=== PATIENT | male | born 1985 ===

== ENCOUNTER 2020-03-30 15:12 | Outpatient (REF) | payer OTHER, SELFPAY | END 2020-03-30 15:13 | disposition home or self-care (01) | LOC: HO.LAB 15:12 | PROVIDERS: Visit Provider Internal Medicine | DX: Z20.828 Contact with and (suspected) exposure to other viral communicable diseases (principal) | CPT/HCPCS: 87635 ==

== ENCOUNTER → 2022-08-13 15:15 | Outpatient (BNVA) | payer OTHER, SELFPAY | PROVIDERS: Visit Provider Internal Medicine | DX: S02.5XXA Fracture of tooth (traumatic), initial encounter for closed fracture (principal); W22.8XXA Striking against or struck by other objects, initial encounter | CPT/HCPCS: 99203 ==

== ENCOUNTER → 2022-10-10 15:13 | Outpatient (REF) | payer OTHER, SELFPAY ==
--- NOTE | 2022-10-10 15:21 | ECG_ITS ---
Test Reason : CHEST PAIN Blood Pressure : / mmHG Vent. Rate : 064 BPM Atrial Rate : 064 BPM P-R Int : 156 ms QRS Dur : 090 ms QT Int : 416 ms P-R-T Axes : 033 036 037 degrees QTc Int : 429 ms Normal sinus rhythm with sinus arrhythmia Normal ECG No previous ECGs available Referred By: Leticia Sykes Electronically Signed By:MIKE SALDIVAR MD
== END ==
LOC: HO.CARD 15:13
PROVIDERS: PCP Internal Medicine; Visit Provider Internal Medicine
DX: R07.9 Chest pain, unspecified (principal)
CPT/HCPCS: 93005

== ENCOUNTER 2022-10-15 10:40 | Outpatient (REF) | payer OTHER, SELFPAY ==
[2022-10-15 10:50] LABS: MANUAL DIFF FLAG NO
[2022-10-15 11:09] LABS: Basophils Absolute Auto 0.1 X10*3/uL (0.0-0.2); Basophils Percent Auto 1.1 % (0-2); Eosinophils Absolute Auto 0.2 X10*3/uL (0.0-0.4); Eosinophils Percent Auto 3.7 % (0-4); Hematocrit 41.6 % (42.0-52.0); Hemoglobin 13.7 g/dl (14.0-18.0); Imm Gran Abs Auto 0.01 X10*3/uL (0.00-0.03); Imm Gran Pct Auto 0.2 % (0.0-0.4); Lymphocytes Absolute Auto 2.2 X10*3/uL (1.2-4.9); Lymphocytes Percent Auto 40.6 % (20-40); Mean Corpuscular HGB Conc 32.9 g/dl (31.0-36.0); Mean Corpuscular Hemoglobin 28.1 pg (27.0-33.0); Mean Corpuscular Volume 85.2 fL (80.0-98.0); Mean Platelet Volume 9.8 fL (9.4-12.4); Monocytes Absolute Auto 0.6 X10*3/uL (0.1-1.2); Neutrophils Absolute Auto 2.3 x10*3/uL (2.0-8.3); Neutrophils Percent Auto 43.4 % (45-73); Platelet Count 266 X10*3/uL (160-400); Red Blood Count 4.88 X10*6/uL (4.60-5.80); Red Cell Distribution Width 13.3 % (11.0-16.0); White Blood Count 5.3 X10*3/uL (4.8-10.8)
[2022-10-15 13:05] LABS: Thyroid Stimulating Hormone 0.48 uIU/mL (0.32-4.0)
[2022-10-15 13:09] LABS: Anion Gap 12 (12-20)
[2022-10-15 13:14] LABS: Alanine Aminotransferase 26 U/L (0-40); Albumin Level 4.5 g/dL (3.5-5.0); Alkaline Phosphatase 61 U/L (39-117); Aspartate Amino Transferase 24 U/L (5-37); Bilirubin Total 0.9 mg/dL (0.0-1.0); Blood Urea Nitrogen 14 mg/dL (9-16); Calcium 9.7 mg/dL (8.4-10.2); Carbon Dioxide 28 mmol/L (22-29); Chloride 105 mmol/L (96-108); Cholesterol 193 mg/dL; Estimated Glomerular Filt Rate > 60; Glucose Fasting 86 mg/dL (60-99); HDL Cholesterol 40 mg/dL; LDL Cholesterol Calculated 99 mg/dl; Potassium 4.5 mmol/L (3.3-5.1); Sodium 140 mmol/L (135-145); Total Protein 7.3 g/dL (6.5-8.0); Triglycerides 272 mg/dL
== END 2022-10-15 10:41 | disposition home or self-care (01) ==
LOC: HO.LAB 10:40
PROVIDERS: PCP Internal Medicine; Visit Provider Internal Medicine
DX: R07.9 Chest pain, unspecified (principal)
CPT/HCPCS: 36415; 80053; 80061; 84443; 85025

== ENCOUNTER 2023-07-19 12:14 | Outpatient (AMB) | payer OTHER, SELFPAY ==
--- NOTE | 2023-07-19 13:48 | AM.OFFWIN_ITS ---
Intake Vital Signs 07/19/23 13:53 BMI Reason not done Patient refused/unable BP 114/62 Blood Pressure Location Lt brachial Position Sitting Pulse 93 Pulse Source Pulse Oximeter Temp 98.0 F Temp Source Oral Pulse Oximetry (%) 98 Oxygen Delivery Method Room Air Intake Visit Reasons: EST/sprain of left ankle(lobby) Intake Note: Pt is here today c/o Lt ankle ?sprain stepped the wrong way yesterday Patient Tobacco Use Status: Former Tobacco user Allergies cephalexin [From KEFLEX] Allergy (Unknown, Verified 07/22/23 15:15) RASH Sulfa (Sulfonamide Antibiotics) Allergy (Unknown, Verified 07/22/23 15:15) rash sulfamethoxazole [From BACTRIM] Allergy (Unknown, Verified 07/22/23 15:15) RASH trimethoprim [From BACTRIM] Allergy (Unknown, Verified 07/22/23 15:15) RASH shellfish derived Adverse Reaction (Intermediate, Verified 07/22/23 15:15) itch, swelling HPI EST/sprain of left ankle(lobby) HPI Details Patient is a 38-year-old male comes to the walk-in clinic a day after he rolled his left ankle climbing, and it caused him to fall onto the ground. He has pain to the lateral aspect of the ankle, along with swelling and it starting to bruise. He complains of pain with movement, and is barely able to tolerate weight-bearing to the extremity. He does report prior severe ankle sprain on that side. 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 Reviewed past medical history with the patient [facility] Surgical History History of shoulder surgery Family History Mother No problems noted. Father Substance use disorder Family/Other Mental health disorder Social History Housing: Apartment Alcohol intake: current Alcohol intake frequency: a few times a month Alcohol type: beer, wine and hard liquor Patient Tobacco Use Status: Former Tobacco user Tobacco use type: Cigarette e-Cigarette/Vaping Use: Never Used Second Hand Smoke Exposure: No service: No Current occupational status: employed Current occupational exposures/hazards: No Cognitive needs: No Hearing needs: No Vision needs: No Review of Systems Const All systems reviewed & are unremarkable except as noted in HPI and below Physical Exam Vital Signs: Last Vital Signs Temp 98.0 F 07/19/23 13:53 Pulse 93 07/19/23 13:53 BP 114/62 07/19/23 13:53 Pulse Ox 98 07/19/23 13:53 Oxygen Delivery Method Room Air 07/19/23 13:53 Const General: cooperative, healthy appearing, comfortable, no acute distress, alert, awake, Physically active and well groomed; No diaphoretic, ill appearing, intoxicated appearing or poor hygiene Nutritional Appearance: average body habitus Limitations: no limitations Resp Effort & Inspection: normal respiratory effort Extrem Other: Left ankle with gross edema to lateral malleolar area, as well as some ecchymosis. He is tender to this area as well, with bony tenderness as well ov er the soft tissue, and with decreased dorsiflexion strength due to the pain. Neurovascularly intact distally. Psych Appearance: grossly normal Mental Status: mental status grossly normal Speech and movement: Normal speech and movement present Affect: normal affect Attitude: cooperative Thought process: Normal thought process present Insight: Good insight present (Psych) Judgement: Good judgement present (Psych) Assessment & Plan Assessment & Plan (1) Injury of ankle, left: Code(s): S99.912A - Unspecified injury of left ankle, initial encounter Qualifiers: Encounter type: initial encounter Qualified Code(s): S99.912A - Unspecified injury of left ankle, initial encounter Plan: Patient has left ankle sprain, with avulsion of indeterminate age on my wet read. He does report history of spraining his left ankle. He was put into an Aryan wrap as well as air cast today, and instructed on how to use crutches. He was advised to rest the extremity, ice it every 2-4 hours until swelling is resolving, and he can wear the compression wrap as well until swelling improves. He should use the Aircast and crutches until he is able to bear weight with only minimal pain. He can take [id number] anti inflammatory medication as needed. He should follow up with PCP or orthopedic to consider a walking boot if his symptoms persist. 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 Orders: Orders XR ankle LT min 3V 07/19/23 S99.912A - Unspecified injury of left ankle, initial encounter Referrals Orthopedics Referral S82.892A - Other fracture of left lower leg, initial encounter for closed fracture Coding Level of Care Code Est Pt Level 4 (01961) Diagnoses Injury of left ankle, initial encounter S99.912A Encounter type: initial encounter
[2023-07-19 13:53] VITALS: BP 114/62; PULSE 93; TEMP 36.7; O2SAT 98
== END 2023-07-19 15:09 | disposition home or self-care (01) ==
PROVIDERS: PCP Internal Medicine; Visit Provider Physician Assistant Medical
DX: S99.912A Unspecified injury of left ankle, initial encounter (principal)
CPT/HCPCS: 99051; 99214

== ENCOUNTER 2023-07-19 14:23 | Outpatient (REF) | payer OTHER, SELFPAY ==
--- NOTE | ~2023-07-19 | XR_ITS ---
EXAMINATION: XR ANKLE, LEFT CLINICAL INFORMATION: Unspecified injury of left ankle. Initial encounter. COMPARISON: Contralateral right ankle films dated 10/27/2012 and report from prior right ankle films from 02/07/2006. TECHNIQUE: AP, lateral, and mortise views of the left ankle performed on 4 images. FINDINGS: There is mild lateral malleolar soft tissue swelling. There is a bone fragment seen at the tip of the distal fibula, displaced into the inferior talofibular joint. The margins of this bone fragment appear well-corticated, suggesting a chronic injury. There is an adjacent smaller also well-corticated bone fragment. No acute fracture or dislocation is seen. Mild swelling of the deep soft tissues about the ankle is noted. No definite ankle joint effusion is seen. The ankle mortise is otherwise intact. XR/XR ankle LT min 3V IMPRESSION: * Mild soft tissue swelling about the left ankle. * Chronic appearing avulsion fracture at the tip of the distal fibula with displacement of the fracture fragment into the inferior talofibular joint. * No definite acute fracture seen.
== END 2023-07-19 14:24 | disposition home or self-care (01) ==
LOC: HO.HMGCX 14:23
PROVIDERS: PCP Internal Medicine; Visit Provider Physician Assistant Medical
DX: S99.912A Unspecified injury of left ankle, initial encounter (principal)
CPT/HCPCS: 73610

== ENCOUNTER 2023-07-22 14:52 | Outpatient (AMB) | payer OTHER, SELFPAY ==
[2023-07-22 15:02] VITALS: BP 120/80; BMI 28.9
--- NOTE | 2023-07-22 15:02 | MHC.PC.OV ---
Vital Signs 07/22/23 15:02 Height 5 ft 8 in Weight 190 lb BMI 28.9 BP 120/80 Blood Pressure Location Lt brachial Position Sitting Intake Visit Reasons: walk in follow up fractured ankle Intake Note: Patient here for follow up Walk-in clinic Fracture Emblem Cutter Required: No Accompanied by: Self / Same As Patient Allergies cephalexin [From KEFLEX] Allergy (Unknown, Verified 07/22/23 15:15) RASH Sulfa (Sulfonamide Antibiotics) Allergy (Unknown, Verified 07/22/23 15:15) rash sulfamethoxazole [From BACTRIM] Allergy (Unknown, Verified 07/22/23 15:15) RASH trimethoprim [From BACTRIM] Allergy (Unknown, Verified 07/22/23 15:15) RASH shellfish derived Adverse Reaction (Intermediate, Verified 07/22/23 15:15) itch, swelling Medication List - Last Reconciled 07/22/23 by Leticia Sykes MD No Known Home Meds Tobacco use date assessed: 07/22/23 Dental Screening Dental Screen Date: 07/22/23 Did you have a dental visit in the last 12 months?: Yes Did you have a dental problem in the last 6 months where you did not have access to dental care?: No Was dental information given to patient?: Patient has dentist HPI HPI Comments History of Present Illness Details This is a 38-year-old male that comes today complaining of left ankle pain secondary to avulsion fracture mildly displaced. This happens FridayJuly 19 while he fell down and hit his left ankle. X-ray was done showing the avulsion fracture. Went to an urgent care and was given crutches. I gave him a boot today. He is aware he can not bear weight. Will see Ortho at the end of this month. [facility] Surgical History History of shoulder surgery Family History Mother No problems noted. Father Substance use disorder Family/Other Mental health disorder Social History Housing: Apartment Alcohol intake: current Alcohol intake frequency: a few times a month Alcohol type: beer, wine and hard liquor Patient Tobacco Use Status: Former Tobacco user Tobacco use type: Cigarette e-Cigarette/Vaping Use: Never Used Second Hand Smoke Exposure: No service: No Current occupational status: employed Current occupational exposures/hazards: No Cognitive needs: No Hearing needs: No Vision needs: No Questionnaire PHQ-9 Over the last 2 weeks, how often have you been bothered by any of the following problems? 1. Little interest or pleasure in doing things: not at all 2. Feeling down, depressed, or hopeless: several days 3. Trouble falling or staying asleep, or sleeping too much: not at all 4. Feeling tired or having little energy: not at all 5. Poor appetite or overeating: not at all 6. Feeling bad about yourself - or that you are a failure or have let yourself or your family down: not at all 7. Trouble concentrating on things, such as reading the newspaper or watching television: not at all 8. Moving or speaking so slowly that other people could have noticed. Or the opposite - being so fidgety or restless that you have been moving around a lot more than usual: not at all 9. Thoughts that you would be better off or of hurting yourself in some way: not at all Total score: 1 Depression Screening Interpretation: Negative Depression Screening Done: Yes 25677 - PHQ-9 Billing: Yes Source: Developed by Drs. Channing Estrada, Annita Harding, Nic Rogers and colleagues, with an educational kelli from [employer] Thrive Questionnaire Date Thrive assessed: 07/22/23 I am a: Patient What is your living situation today?: I have a steady place to live Within the past 12 months, did the food you bought not last and you didn't have the money to get more?: Never true Within the past 12 months, did you worry whether your food would run out before you got money to buy more?: Never true Do you have trouble paying for medicines?: No Do you have trouble getting transportation to medical appointments?: No Do you have trouble paying your heating and electricity bill?: No Do you have trouble taking care of your child, family member or friend?: No Do you have trouble with day-to-day activities such as bathing, preparing meals, shopping, managing finances, etc.?: No Are you currently unemployed and looking for a job?: No Are you interested in more education?: No Please select the resources that you would like help with: None Currently or been in a relationship where the following occur: no concerns reported THRIVE Score: 0 AUDIT C Alcohol Use Questionnaire (AUDIT-C) 1. How often do you have a drink containing alcohol?: 2-4 times a month 2. How many drinks containing alcohol do you have on a typical day when you are drinking?: 1 or 2 3. How often do you have six or more drinks on one occasion?: Never Total Score: 2 ADÁN-7 AMB Questionnaire ADÁN-7 Date ADÁN - 7 assessed: 07/22/23 Feeling nervous, anxious, or on edge: 0 = Not at all Not being able to stop or control worryin = Not at all Worrying too much about different things: 0 = Not at all Trouble relaxin = Not at all Being so restless that it is hard to sit still: 0 = Not at all Becoming easily annoyed or irritable: 0 = Not at all Feeling afraid as if something awful might happen: 0 = Not at all Total ADÁN-7 score (0-4 normal; 5-9 mild; 10-14 moderate; 15-21 severe): 0 Source: Developed by Drs. Channing Estrada, Annita Harding, Nic Rogers and colleagues, with an educational kelli from [employer] ADÁN-7 Assessment Billing ADÁN-7 Assessment Tool: ADÁN-7 Assessment 80331 Review of Systems Const All systems reviewed & are unremarkable except as noted in HPI and below Eyes Reports no additional complaints, Denies change in vision and Denies other visual disturbances Card Denies chest pain at rest, Denies chest pain with activity, Denies edema, Denies irregular heart rhythm, Denies claudication, Denies dyspnea, Denies dyspnea on exertion, Denies orthopnea, Denies paroxysmal nocturnal dyspnea and Denies slow heart rate Resp Denies cough, Denies dyspnea and Denies dyspnea on exertion GI Denies abdominal pain, Denies change in bowel habits, Denies excessive flatus, Denies nausea and Denies vomiting Denies urinary hesitancy, Denies urinary incontinence and Denies urinary urgency Musc Denies abnormal gait, Denies atrophy, Denies deformity and Denies limited range of motion Skin/Breast Denies bleeding lesions, Denies changing lesions and Denies rash Neuro Denies abnormal gait, Denies behavioral changes and Denies lack of coordination Psych Denies behavioral changes Physical exam (Primary Care) Vital Signs: Last Vital Signs BP 120/80 07/22/23 15:02 BMI result Body Mass Index 28.9 Tobacco/Smoking Status: Tobacco use Status Tobacco use date assessed 07/22/23 07/22/23 15:08 Patient Tobacco Use Status Former Tobacco user 07/22/23 15:08 Tobacco use type Cigarette 07/22/23 15:08 e-Cigarette/Vaping Use Never Used 07/22/23 15:08 PHQ-9: PHQ-9 Score PHQ-9: Total score 1 07/22/23 15:16 Depression Screening Interpretation: Negative Thrive Assessment: Date of Thrive Assessment Date Thrive assessed 07/22/23 07/22/23 15:08 Currently or been in a relationship where the following occur: no concerns reported Eyes General: appearance normal, both eyes and all related structures Eyelids: Yes eyelids normal Conjunctivae: conjunctivae normal Neck Neck: Yes normal visual inspection and Yes supple Resp Effort & Inspection: normal respiratory effort Auscultation: clear to auscultation bilaterally Cardio Jugular venous distension: no JVD Rate: regular rate Rhythm: regular rhythm Heart sounds: S1 normal heart sound present and S2 normal heart sound present Assessment and Plan Assessment & Plan (1) Avulsion fracture of left ankle: Code(s): S82.892A - Other fracture of left lower leg, initial encounter for closed fracture Plan: Continue using crutches to move. Follow-up with ortho. Coding Level of Care Code Est Pt Level 3 (33392) Diagnoses Avulsion fracture of left ankle S82.892A Additional Codes ADÁN-7 Assessment Billing - ADÁN-7 Assessment Tool: ADÁN-7 Assessment 64952 ([id number]) Time Spent (min) 19
== END 2023-07-22 15:50 | disposition home or self-care (01) ==
LOC: HO.HMGH 14:52
PROVIDERS: PCP Internal Medicine; Visit Provider Internal Medicine
DX: S82.892A Other fracture of left lower leg, initial encounter for closed fracture (principal)
CPT/HCPCS: 99213

== ENCOUNTER 2023-08-07 12:41 | Outpatient (AMB) | payer OTHER, SELFPAY ==
[2023-08-07 12:42] VITALS: BMI 28.9
--- NOTE | 2023-08-07 12:42 | A.OFFVIS_ITS ---
Intake Vital Signs 08/07/23 12:42 Height 5 ft 8 in Weight 190 lb BMI 28.9 Intake Visit Reasons: New Pt - Left ankle pain, DOI 07/19/23 Intake Note: Yuri is a 38 year old male who presents today as new patient for a evaluation of his left ankle pain, DOI 07/18/23. Patient reports he rolled his left ankle tripping off of a steep step, and it caused him to fall onto the ground. Currently he is having some numbness aroung the ankle and the heal. He get a sharp pain in the heal when it hits something. He is using ibuprofen and ice. He is in a air cast which helps. Allergies cephalexin [From KEFLEX] Allergy (Unknown, Verified 08/07/23 12:48) RASH Sulfa (Sulfonamide Antibiotics) Allergy (Unknown, Verified 08/07/23 12:48) rash sulfamethoxazole [From BACTRIM] Allergy (Unknown, Verified 08/07/23 12:48) RASH trimethoprim [From BACTRIM] Allergy (Unknown, Verified 08/07/23 12:48) RASH shellfish derived Adverse Reaction (Intermediate, Verified 08/07/23 12:48) itch, swelling HPI New Pt - Left ankle pain, DOI 07/19/23 HPI Details 38-year-old male who presents in the off ice today for an evaluation of left ankle pain. The patient presented to the Walk-In clinic on 07/19/2023 status post stepping the wrong way while climbing on 07/18/2023. He was placed in an TRELL wrap and air cast. He followed up with his PCP on 07/22/2023 who transitioned him in to a boot and instructed him to remain non-weight bearing. While in the office today the patient reports he rolled his ankle tripping off a steep step, which caused him to fall to the ground. He reports numbness along the ankle and the heel. He describes a sharp pain when it bumps other things. He is currently using Ibuprofen 200 mg PO Q6H PRN and ice. He presents to the office in an aircast, which he states is helping him with pain. [facility] Surgical History History of shoulder surgery Family History Mother No problems noted. 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 Current occupational exposures/hazards: No Cognitive needs: No Hearing needs: No Vision needs: No Review of Systems Const All systems reviewed & are unremarkable except as noted in HPI and below Physical Exam Vital Signs: BMI result Body Mass Index 28.9 Const General: cooperative and no acute distress Orientation/consciousness: patient oriented x3 Resp Effort & Inspection: normal respiratory effort and able to speak in complete sentences Cardio Peripheral pulses: Peripheral pulses 2+ throughout Skin General skin exam: no rashes or lesions noted Neuro General: patient oriented x3 Extrem Other: Left ankle: Normal to inspection. No ecchymosis or erythema. Mild edema along the lateral malleolus. Slight tenderness to palpation over the lateral malleolus. Able to perform dorsiflex, plantarflex, pronation and supination with mild pain. Sensation intact. Pedal pulse intact. Assessment & Plan Assessment & Plan (1) Left ankle sprain: Onset Date: ~07/19/23 Code(s): S93.402A - Sprain of unspecified ligament of left ankle, initial encounter Qualifiers: Encounter type: initial encounter Involved ligament of ankle: unspecified ligament Qualified Code(s): S93.402A - Sprain of unspecified ligament of left ankle, initial encounter Plan Mr. Forrester is a 38-year-old male who presents in the office today for an evaluation of left ankle pain. The patient presented to the Walk-In clinic on 07/19/2023 status post stepping the wrong way while climbing on 07/18/2023. He was placed in an TRELL wrap and air cast. He followed up with his PCP on 07/22/2023 who transitioned him in to a boot and instructed him to remain non- weight bearing. While in the office today the patient reports he rolled his ankle tripping off a steep step, which caused him to fall to the ground. He reports numbness along the ankle and the heel. He describes a sharp pain when it bumps other things. He is currently using Ibuprofen 200 mg PO Q6H PRN and ice. He presents to the office in an aircast, which he states is helping him with pain. A referral for the patient to attend physical therapy was placed today. His goal is for him to begin to wean out of the boot in the next 1-2 weeks. He was given a work note stating he should remain out of work until his follow up. Follow up will be in 4 weeks, or sooner if needed. X-rays of the left ankle, obtained on 07/19/2023, revealed: * Mild soft tissue swelling about the left ankle. * Chronic appearing avulsion fracture at the tip of the distal fibula with displacement of the fracture fragment into the inferior talofibular joint. * No definite acute fracture seen. Orders: Orders PT Evaluation and Treatment Today S82.892A - Other fracture of left lower leg, initial encounter for closed fracture Patient Instructions: Scribed by Xena Gaviria medical orderly, for Bisi Arellano PA-C on 08/07/2023 at 12:42 pm, EST. Coding Level of Care Code New Pt Level 4 (98596) Diagnoses Sprain of left ankle, unspecified ligament, initial encounter S93.402A Encounter type: initial encounter Involved ligament of ankle: unspecified ligament
== END 2023-08-07 13:48 | disposition home or self-care (01) ==
PROVIDERS: PCP Internal Medicine; Visit Provider Physician Assistant
DX: S93.402A Sprain of unspecified ligament of left ankle, initial encounter (principal)
CPT/HCPCS: 99203

== ENCOUNTER → 2023-08-07 12:41 | Outpatient (BNVA) | payer OTHER, SELFPAY | PROVIDERS: PCP Internal Medicine; Visit Provider Physician Assistant ==

== ENCOUNTER 2023-09-05 11:27 | Outpatient (AMB) | payer OTHER, SELFPAY ==
--- NOTE | 2023-09-05 11:34 | MHC.OFFVIS ---
Intake Intake Visit Reasons: OV-Left ankle pain, DOI 07/19/23-follow up Intake Note: Yuri is a 38 year old male who presents today for a follow up of his left ankle pain, DOI 07/19/23. Patient reports he is doing better. He informed me that PT was weaning him off from his knee scooter and crutches, he is down to using one crutch. Patient states that he is having more stiffness and than pain. Allergies cephalexin [From KEFLEX] Allergy (Unknown, Verified 09/05/23 11:40) RASH Sulfa (Sulfonamide Antibiotics) Allergy (Unknown, Verified 09/05/23 11:40) rash sulfamethoxazole [From BACTRIM] Allergy (Unknown, Verified 09/05/23 11:40) RASH trimethoprim [From BACTRIM] Allergy (Unknown, Verified 09/05/23 11:40) RASH shellfish derived Adverse Reaction (Intermediate, Verified 09/05/23 11:40) itch, swelling HPI OV-Left ankle pain, DOI 07/19/23-follow up HPI Details 38-year-old male who presents in the office today for a follow up of a left ankle sprain. I last saw the patient in the office on 08/07/2023. At this time he was referred to PT with a goal of weaning out of the boot with in 1-2 weeks. He was given a work note stating he should remain out of work until his follow up. Patient states PT is weaning him off the knee scooter and one crutch. They are going to begin to wean him off the other crutch. He reports feeling increased stiffness and mild pain. [facility] Surgical History History of shoulder surgery Family History Mother No problems noted. 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 No ecchymosis or erythema. Mild edema along the lateral malleolus. Slight tenderness to palpation over the lateral malleolus. Able to perform dorsiflex, plantarflex, pronation and supination with mild pain. Sensation intact. Pedal pulse intact. Assessment & Plan Assessment & Plan (1) Left ankle sprain: Onset Date: ~07/19/23 Code(s): S93.402A - Sprain of unspecified ligament of left ankle, initial encounter Qualifiers: Encounter type: initial encounter Involved ligament of ankle: unspecified ligament Qualified Code(s): S93.402A - Sprain of unspecified ligament of left ankle, initial encounter Plan Mr. Lopez is a 38-year-old male who presents in the office today for a follow up of a left ankle sprain. I last saw the patient in the office on 08/07/2023. At this time he was referred to PT with a goal of weaning out of the boot with in 1-2 weeks. He was given a work note stating he should remain out of work until his follow up. Patient states PT is weaning him off the knee scooter and one crutch. They are going to begin to wean him off the other crutch. He reports feeling increased stiffness and mild pain. Educated the patient he should discontinuing the boot as of now to work on ROM and stiffness. He will continue to work with physical therapy. He was given a lace up ankle brace, off the shelf. He will continue with light duty work restrictions until his follow up. Follow up in 4 weeks for a ROM check, or sooner if needed. Patient Instructions: Scribed by Xena Gaviria esthetician and manager medical spa, for Bisi Arellano PA-C on 09/05/2023 at 11:35 pm, EST. Coding Level of Care Code Est Pt Level 3 (95065) Diagnoses Sprain of left ankle, unspecified ligament, initial encounter S93.402A Encounter type: initial encounter Involved ligament of ankle: unspecified ligament
== END 2023-09-05 12:06 | disposition home or self-care (01) ==
PROVIDERS: PCP Internal Medicine; Visit Provider Physician Assistant
DX: S93.402A Sprain of unspecified ligament of left ankle, initial encounter (principal)
CPT/HCPCS: 99213

== ENCOUNTER → 2023-09-05 11:27 | Outpatient (BNVA) | payer OTHER, SELFPAY | PROVIDERS: PCP Internal Medicine; Visit Provider Physician Assistant ==

== ENCOUNTER 2023-10-02 15:23 | Outpatient (AMB) | payer OTHER, SELFPAY ==
--- NOTE | 2023-10-02 15:33 | A.OFFVIS_ITS ---
Intake Visit Reasons: OV-Left ankle pain, DOI 07/19/23-follow up Intake Note: Yuri is a 38 year old male who presents today for a follow up of his left ankle sprain, DOI 07/19/23. Patient reports he is still having some soreness and tenderness on the ankle. He expresses that PT is helping him a lot. Allergies cephalexin [From KEFLEX] Allergy (Unknown, Verified 10/02/23 15:34) RASH Sulfa (Sulfonamide Antibiotics) Allergy (Unknown, Verified 10/02/23 15:34) rash sulfamethoxazole [From BACTRIM] Allergy (Unknown, Verified 10/02/23 15:34) RASH trimethoprim [From BACTRIM] Allergy (Unknown, Verified 10/02/23 15:34) RASH shellfish derived Adverse Reaction (Intermediate, Verified 10/02/23 15:34) itch, swelling HPI HPI OV-Left ankle pain, DOI 07/19/23-follow up: Details: 38-year-old male who presents in the office today for a follow up of left ankle sprain. I last saw the patient on 09/05/2023 when he was educated to discontinue the boot as of now to work on ROM and stiffness. He will continue to work with physical therapy. He was given a lace up ankle brace. He will continue with light duty work restrictions. While in the office today he reports he is still having pain with moving side to side. He has been exercising at home and using stairs. He feels PT has helped him a lot. He feels he has full ROM. Patient states his ankle feels different than it did when he fractured the ankle prior. He has one session in October and he missed one session prior. He would like to continue. [facility] Surgical History History of shoulder surgery Family History Mother No problems noted. 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 No ecchymosis, erythema, or edema. Patient is able to demonstrate dorsiflexion, plantar flexion, pronation and supination. Negative anterior drawer. Sensation intact. Pedal Pulse intact. Assessment & Plan Assessment & Plan (1) Left ankle sprain: Onset Date: ~07/19/23 Code(s): S93.402A - Sprain of unspecified ligament of left ankle, initial encounter Category: Medical Qualifiers: Encounter type: initial encounter Involved ligament of ankle: unspecified ligament Qualified Code(s): S93.402A - Sprain of unspecified ligament of left ankle, initial encounter Plan Mr. Forrester is a 38-year-old male who presents in the office today for a follow up of left ankle sprain. I last saw the patient on 09/05/2023 when he was edu cated to discontinue the boot as of now to work on ROM and stiffness. He will continue to work with physical therapy. He was given a lace up ankle brace. He will continue with light duty work restrictions. While in the office today he reports he is still having pain with moving side to side. He has been exercising at home and using stairs. Patient states his ankle feels different than it did when he fractured the ankle prior. He feels PT has helped him a lot. He feels he has full ROM. He has one session in October and he missed one session prior. He would like to continue. An updated order for PT was placed in the office today to begin to work on strengthening. He will remain out of work until his follow up. An updated work note was given to the patient in the office today. The patient reporting the ankle feels different then it had prior when he fractured it. Also, due to the patient slowly progressing with physical therapy and returning to normal activities I would like to further evaluate the ankle with an MRI. An order was placed in the office today. Discussed taking Ibuprofen and icing the ankle elevated at the end of the night around 2 hours before bed. Follow up will be in 4-6 weeks, or sooner if needed. Patient Instructions: Scribed by Xena Gaviria manager medical device, for Bisi Arellano PA-C on 10/02/2023 at 3:28 pm, EST. Coding Level of Care Code Est Pt Level 3 (40143) Diagnoses Sprain of left ankle, unspecified ligament, initial encounter S93.402A Encounter type: initial encounter Involved ligament of ankle: unspecified ligament
== END 2023-10-02 15:56 | disposition home or self-care (01) ==
PROVIDERS: PCP Internal Medicine; Visit Provider Physician Assistant
DX: S93.402A Sprain of unspecified ligament of left ankle, initial encounter (principal)
CPT/HCPCS: 99213

== ENCOUNTER → 2023-10-02 15:23 | Outpatient (BNVA) | payer OTHER, SELFPAY | PROVIDERS: PCP Internal Medicine; Visit Provider Physician Assistant ==

== ENCOUNTER 2023-10-15 14:33 | Outpatient (AMB) | payer OTHER, SELFPAY ==
[2023-10-15 14:35] VITALS: BP 120/82; BMI 30.7
--- NOTE | 2023-10-15 14:35 | MHC.PC.OV ---
Vital Signs 10/15/23 14:35 Height 5 ft 8 in Weight 202 lb BMI 30.7 BP 120/82 Blood Pressure Location Lt brachial Position Sitting Intake Visit Reasons: Annual Exam Intake Note: Patient here for an annual exam Windows Laptop Technician Required: No Accompanied by: Self / Same As Patient Allergies cephalexin [From KEFLEX] Allergy (Unknown, Verified 10/15/23 14:47) RASH Sulfa (Sulfonamide Antibiotics) Allergy (Unknown, Verified 10/15/23 14:47) rash sulfamethoxazole [From BACTRIM] Allergy (Unknown, Verified 10/15/23 14:47) RASH trimethoprim [From BACTRIM] Allergy (Unknown, Verified 10/15/23 14:47) RASH shellfish derived Adverse Reaction (Intermediate, Verified 10/15/23 14:47) itch, swelling Medication List - Last Reconciled 10/15/23 by Leticia Sykes MD ibuprofen 200 mg PO Q6H PRN terbinafine HCl 250 mg PO DAILY 90 days Tobacco use date assessed: 07/22/23 Dental Screening Dental Screen Date: 07/22/23 HPI HPI Comments History of Present Illness Details This is a 38-year-old female that comes for his physical exam. Denies any chest pain or shortness of breath. Complains of onychomycosis. Will give him terbinafine bowel liver panel has to be before starting treatment. Liver panel will be repeated after completing treatment. No chest pain or shortness of breath. No family history of colon cancer. 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 Channing Estrada, Annita Harding, Nic Rogers and colleagues, with an educational kelli from [employer]. Review of Systems Const All systems reviewed & are unremarkable except as noted in HPI and below Card Denies chest pain at rest, Denies chest pain with activity, Denies edema, Denies irregular heart rhythm, Denies claudication, Denies dyspnea, Denies dyspnea on exertion, Denies orthopnea, Denies paroxysmal nocturnal dyspnea and Denies slow heart rate Resp Denies cough, Denies dyspnea and Denies dyspnea on exertion Physical exam (Primary Care) Vital Signs: Last Vital Signs BP 120/82 10/15/23 14:35 BMI result Body Mass Index 30.7 Tobacco/Smoking Status: Tobacco use Status Tobacco use date assessed 07/22/23 10/15/23 14:42 Patient Tobacco Use Status Former Tobacco user 10/15/23 14:42 Tobacco use type Cigarette 10/15/23 14:42 e-Cigarette/Vaping Use Never Used 10/15/23 14:42 Thrive Assessment: Date of Thrive Assessment Date Thrive assessed 07/22/23 10/15/23 14:42 Const Orientation/consciousness: patient oriented x3 HENMT Head: Yes normal to inspection, Yes normocephalic and Yes atraumatic Ears: external ears normal Neck Neck: Yes normal visual inspection and Yes supple Resp Effort & Inspection: normal respiratory effort Auscultation: clear to auscultation bilaterally Cardio Jugular venous distension: no JVD Rate: regular rate Rhythm: regular rhythm Heart sounds: S1 normal heart sound present and S2 normal heart sound present GI Inspection: Yes normal to inspection Palpation (GI): Soft to palpation and nontender Auscultation: normal bowel sounds Skin General skin exam: no rashes or lesions noted Neuro General: patient oriented x3 and no focal motor deficits Extrem General: Yes full ROM Psych Appearance: grossly normal Assessment and Plan Assessment & Plan (1) Physical exam: Code(s): Z00.00 - Encounter for general adult medical examination without abnormal findings Plan: Repeating a year. Orders: Orders Liver Panel Today B35.1 - Tinea unguium Medications: New terbinafine HCl 250 mg PO DAILY 90 tabs 0RF 90 days Coding Level of Care Code Est Pt Prev Care 40-64y(46542) Diagnoses Physical exam Z00.00 Time Spent (min) 30
== END 2023-10-15 16:02 | disposition home or self-care (01) ==
PROVIDERS: Visit Provider Internal Medicine
DX: Z00.00 Encounter for general adult medical examination without abnormal findings (principal)
CPT/HCPCS: 99396

== ENCOUNTER 2023-10-15 15:26 | Outpatient (REF) | payer OTHER, SELFPAY ==
[2023-10-15 21:25] LABS: Alanine Aminotransferase 34 U/L (0-40); Albumin Level 4.5 g/dL (3.5-5.0); Alkaline Phosphatase 57 U/L (39-117); Aspartate Amino Transferase 26 U/L (5-37); Bilirubin Direct 0.1 mg/dL (0.0-0.5); Bilirubin Total 0.4 mg/dL (0.0-1.0); Total Protein 7.6 g/dL (6.5-8.0)
== END 2023-10-15 15:27 | disposition home or self-care (01) ==
LOC: HO.LAB 15:26
PROVIDERS: PCP Internal Medicine; Visit Provider Internal Medicine
DX: B35.1 Tinea unguium (principal)
CPT/HCPCS: 36415; 80076

== ENCOUNTER 2023-11-11 18:18 | Outpatient (REF) | payer OTHER, SELFPAY ==
--- NOTE | ~2023-11-11 | MR_ITS ---
EXAMINATION: MR ANKLE WITHOUT CONTRAST, LEFT CLINICAL INFORMATION: Left ankle pain and swelling. Recurrent injury. Ligament sprain. COMPARISON: Left ankle radiographs dated 07/19/2023. TECHNIQUE: MRI of the ankle was performed using routine sequences on a high-field scanner. FINDINGS: BONE AND ARTICULAR CARTILAGE: Chronic, minimally displaced avulsion fracture at the anterior aspect of the distal lateral malleolus measuring up to 1.5 x 0.5 x 0.5 cm, similar when compared to the prior radiographs and consistent with a remote avulsion fracture. There is minimal degenerative cystic change and marrow edema along the unfused fracture line. No acute fracture or dislocation. The ankle mortise is maintained. No talar osteochondral lesion. Intact articular cartilage. No concerning lytic or blastic osseous lesion. ACHILLES TENDON: Intact. OTHER TENDONS: Trace fluid within the flexor digitorum longus and posterior tibialis tendon sheaths, consistent with minimal tenosynovitis. No transverse tendon tear or tendon retraction. LIGAMENTS: Heterogeneity of the posterior talofibular ligament with mild attenuation of the anterior talofibular and calcaneofibular ligaments, consistent with remote sprain/partial tears. No edema or evidence of acute ligament injury. JOINT FLUID AND SOFT TISSUES: Trace tibiotalar and subtalar joint effusions. No soft tissue mass or fluid collection. PLANTAR FASCIA: Intact. SINUS TARSI AND TARSAL TUNNEL: Patent. MR/MR ankle LT wo con IMPRESSION: 1. Chronic, minimally displaced avulsion fracture at the anterior aspect of the distal lateral malleolus with minimal degenerative cystic change and marrow edema along the unfused fracture line. No acute fracture or dislocation. 2. Remote sprain/partial tears of the anterior talofibular, posterior talofibular, and calcaneofibular ligaments. No evidence of acute ligament injury. 3. Minimal flexor digitorum longus and posterior tibialis tenosynovitis. No transverse tendon tear or tendon retraction. 4. Trace tibiotalar and subtalar joint effusions.
== END 2023-11-11 18:19 | disposition home or self-care (01) ==
LOC: HO.MRI 18:18
PROVIDERS: PCP Internal Medicine; Visit Provider Physician Assistant
DX: S93.402A Sprain of unspecified ligament of left ankle, initial encounter (principal)
CPT/HCPCS: 73721

== ENCOUNTER 2023-11-20 11:19 | Outpatient (AMB) | payer OTHER, SELFPAY ==
--- NOTE | 2023-11-20 11:23 | A.OFFVIS_ITS ---
Vital Signs 11/20/23 11:27 Height 5 ft 8 in Weight 202 lb BMI 30.7 Intake Visit Reasons: OV-Left ankle pain, DOI 07/19/23 Intake Note: Yuri is a 38 year old male who presents today for a MRI review of his left ankle, DOI 07/19/23. MRI review was done 11/10. Patient reports he is feeling better. He expresses that he does feel some click behind his ankle and some pain when he does certain movements/pivot. Allergies cephalexin [From KEFLEX] Allergy (Unknown, Verified 11/20/23 11:27) RASH Sulfa (Sulfonamide Antibiotics) Allergy (Unknown, Verified 11/20/23 11:27) rash sulfamethoxazole [From BACTRIM] Allergy (Unknown, Verified 11/20/23 11:27) RASH trimethoprim [From BACTRIM] Allergy (Unknown, Verified 11/20/23 11:27) RASH shellfish derived Adverse Reaction (Intermediate, Verified 11/20/23 11:27) itch, swelling HPI HPI OV-Left ankle pain, DOI 07/19/23: Details: 38-year-old male who presents in the office today for a follow up of a left ankle sprain, which occurred on 07/19/2023. I last saw the patient in the office on 10/02/2023 when I updated the order for PT to begin to work on strengthening. He was to remain out of work until his follow-up. Due to his slow progression an MRI was also ordered for further evaluation. While in the office today the patient reports he is feeling better. He expresses that he feels some clicking behind his left ankle. He also reports some pain with certain movements, like pivoting. 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 Current occupational exposures/hazards: No Cognitive needs: No Hearing needs: No Vision needs: No Review of Systems Const All systems reviewed & are unremarkable except as noted in HPI and below Physical Exam Vital Signs: BMI result Body Mass Index 30.7 Const General: cooperative, healthy appearing and no acute distress Resp Effort & Inspection: normal respiratory effort and able to speak in complete sentences Cardio Rate: regular rate Peripheral pulses: Peripheral pulses 2+ throughout GI Palpation (GI): Soft to palpation Skin Lesions: no lesions Rashes: no rashes Extrem Other: Left ankle: Normal to inspection. No ecchymosis, erythema, or edema. Patient is able to demonstrate dorsiflexion, plantar flexion, pronation and supination. Negative anterior drawer. Sensation intact. Pedal Pulse intact. Assessment & Plan Assessment & Plan (1) Left ankle sprain: Onset Date: ~07/19/23 Code(s): S93.402A - Sprain of unspecified ligament of left ankle, initial encounter Category: Medical Qualifiers: Encounter type: initial encounter Involved ligament of ankle: unspecified ligament Qualified Code(s): S93.402A - Sprain of unspecified ligament of left ankle, initial encounter Plan Mr. Forrester is a 38-year-old male who presents in the office today for a follow up of a left ankle sprain, which occurred on 07/19/2023. I last saw the patient in the office on 10/02/2023 when I updated the order for PT to begin to work on strengthening. He was to remain out of work until his follow-up. Due to his slow progression an MRI was also ordered for further evaluation. While in the office today the patient reports he is feeling better. He expresses that he feels some clicking behind his left ankle. He also reports some pain with certain movements, like pivoting. 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 The patient was given a work note stating he may do sedentary work only for the next week. After this he may return to full-time, regular duty. The patient will work at the gym on strengthening. We discussed edema in the ankle can last for over a year and he should anticipate having some soreness for up to 6 months. Follow-up will be PRN, or sooner if needed. MRI of the left ankle, obtained on 11/11/2023, revealed: 1. Chronic, minimally displaced avulsion fracture at the anterior aspect of the distal lateral malleolus with minimal degenerative cystic change and marrow edema along the unfused fracture line. No acute fracture or dislocation. 2. Remote sprain/partial tears of the anterior talofibular, posterior talofibular, and calcaneofibular ligaments. No evidence of acute ligament injury. 3. Minimal flexor digitorum longus and posterior tibialis tenosynovitis. No transverse tendon tear or tendon retraction. 4. Trace tibiotalar and subtalar joint effusions. Patient Instructions: Scribed by Xena Gaviria medical staff manager, for Bisi Arellano PA-C on 11/20/2023 at 11:26 am, EST. Coding Level of Care Code Est Pt Level 3 (34414) Diagnoses Sprain of left ankle, unspecified ligament, initial encounter S93.402A Encounter type: initial encounter Involved ligament of ankle: unspecified ligament
[2023-11-20 11:27] VITALS: BMI 30.7
== END 2023-11-20 15:27 | disposition home or self-care (01) ==
PROVIDERS: PCP Internal Medicine; Visit Provider Physician Assistant
DX: S93.402A Sprain of unspecified ligament of left ankle, initial encounter (principal)
CPT/HCPCS: 99213

== ENCOUNTER → 2023-11-20 11:19 | Outpatient (BNVA) | payer OTHER, SELFPAY | PROVIDERS: PCP Internal Medicine; Visit Provider Physician Assistant ==

== ENCOUNTER 2023-11-21 15:00 | Outpatient (RCR) | payer OTHER, SELFPAY ==
--- NOTE | 2023-08-22 13:52 | MHC.PT.EP ---
[facility] [place] Office [place] Office [place] Office [address] [phone] F: [phone] F: [phone] F: [phone] F: [phone] Physical Therapy Plan of Care Date of Evaluation: 08/22/23 Date of Surgery: Diagnosis: closed fracture of LEFT lower leg; avulsion fracture of LEFT ankle (DOI: 07/18/23) Assessment: Patient is a pleasant 38 y.o. 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 Ortho note 08/07/23 indicates to transition out of boot in 1-2 weeks. Patient impairments include gait restrictions and impairments, limited ankle ROM, weakness in ankle. 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 Patient will benefit from skilled PT to address aforementioned impairments and functional limitations to meet established goals. Frequency and Duration: The patient will be seen 1-2x/week for 4 weeks Short Term Goals: 2 weeks Patient demonstrates consistency and independence with HEP to self manage symptoms. Patient is able to ambulate with AirCast and regular shoe with LRAD WBAT. Residential Goals: 4 weeks Patient presents with increased L ankle DF 5 degrees to normalize gait pattern without AD use. Patient presents with incresased L ankle strength into inversion/eversion 5/5 to be able to ascend/descend 1 flight of stairs reciprocally at home. Treatment Plan: Modalities to reduce pain, spasms and effusion. Manual therapy to restore motion and function. Therapeutic exercise to improve strength and flexibility. Neuromuscular re-education for posture and balance. Therapeutic activities to return to functional activities of daily living. Electronically signed by: Vanessa Ledesma, PT, DPT Please sign and return to therapist. Thank you for your referral.
--- NOTE | 2023-12-04 09:29 | MHC.PT.DC ---
[facility] [place] [facility] [place] [facility] [address] Cony Oquendo [address] [phone] F: [phone] F: [phone] F: [phone] F: [phone] Physical Therapy Discharge Report Diagnosis: closed fracture of LEFT lower leg; avulsion fracture of LEFT ankle (DOI: 07/18/23) Date of Surgery: Date of Evaluation: 08/22/23 Date of Discharge: 11/21/23 Treatments to Date: 13 Cancellations to Date: No Shows to Date: Discharge Status: Achieved Goals Improved Function Independent with HEP Discharge Summary: Pt was last seen in PT on 11/21/2023 and the assessment reads, Pt has met all goals at this time and is returning to prior activities. Completed MRI with no additional findings and cleared for RTW by Review of program as well as initiation of some gentle plyometrics without discomfort. Advised pt of continuing progression as part of HEP and return to gym progression. D/C I with HEP. Electronically signed by: Vanessa Ledesma, PT, DPT Please sign and return to therapist. Thank you for your referral.
== END 2023-12-04 09:30 | disposition home or self-care (01) ==
LOC: HO.PT 15:00
PROVIDERS: PCP Internal Medicine; Visit Provider Physician Assistant
DX: S82.892D Other fracture of left lower leg, subsequent encounter for closed fracture with routine healing (principal)
CPT/HCPCS: 97110; 97112; 97140; 97161; 97530

== ENCOUNTER 2024-10-18 14:32 | Outpatient (AMB) | payer BC, SELFPAY ==
--- NOTE | 2024-10-18 14:40 | MHC.PC.OV ---
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: No Accompanied by: Self / Same As Patient Allergies cephalexin [From KEFLEX] Allergy (Unknown, Verified 10/18/24 14:57) RASH Sulfa (Sulfonamide Antibiotics) Allergy (Unknown, Verified 10/18/24 14:57) rash sulfamethoxazole [From BACTRIM] Allergy (Unknown, Verified 10/18/24 14:57) RASH trimethoprim [From BACTRIM] Allergy (Unknown, Verified 10/18/24 14:57) RASH shellfish derived Adverse Reaction (Intermediate, Verified 10/18/24 14:57) itch, swelling Medication List - Last Reconciled 10/18/24 by Leticia Sykes MD terbinafine HCl 250 mg PO DAILY 90 days Tobacco use date assessed: 10/18/24 Dental Screening Dental Screen Date: 10/18/24 Did you have a dental visit in the last 12 months?: Yes Did you have a dental problem in the last 6 months where you did not have access to dental care?: No Was dental information given to patient?: Patient has dentist HPI HPI Comments History of Present Illness Details The patient is a 39-year-old male presenting for a routine physical examination. He has noted a cough as chronic and recurrent, without clearly identified precipitating factors, and is considering Mucinex for symptomatic relief. There is no reported chest pain or shortness of breath accompanying this cough. Additionally, he recently experienced a spontaneous resolution of a red marking in the genital area following sexual activity, prompting concerns about potential sexually transmitted infections. As such, he requests testing for STIs, including syphilis, chlamydia, and gonorrhea. In past medical history, the patient recalls having slightly low hemoglobin, although specifics about causes or additional testing were not detailed during this encounter. He denies any family history of colon cancer, though he plans to verify this with his mother. His social history records show previous smoking habits, now ceased, and the consumption of alcohol a few times a week. He reports mild anxiety but denies any current depressive symptoms, noting no significant interference in daily life. 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 1. Little interest or pleasure in doing things: not at all 2. Feeling down, depressed, or hopeless: not at all 3. Trouble falling or staying asleep, or sleeping too much: not at all 4. Feeling tired or having little energy: not at all 5. Poor appetite or overeating: not at all 6. Feeling bad about yourself - or that you are a failure or have let yourself or your family down: not at all 7. Trouble concentrating on things, such as reading the newspaper or watching television: not at all 8. Moving or speaking so slowly that other people could have noticed. Or the opposite - being so fidgety or restless that you have been moving around a lot more than usual: not at all 9. Thoughts that you would be better off or of hurting yourself in some way: not at all Total score: 0 Depression Screening Interpretation: Negative Depression Screening Done: Yes 12861 - PHQ-9 Billing: Yes Source: Developed by Drs. Channing Estrada, Annita Harding, Nic Rogers and colleagues, with an educational kelli from [employer]. Thrive Questionnaire Date Thrive assessed: 10/18/24 I am a: Patient What is your living situation today?: I have a steady place to live Within the past 12 months, did the food you bought not last and you didn't have the money to get more?: Never true Within the past 12 months, did you worry whether your food would run out before you got money to buy more?: Never true Do you have trouble paying for medicines?: No Do you have trouble getting transportation to medical appointments?: No Do you have trouble paying your heating and electricity bill?: No Do you have trouble taking care of your child, family member or friend?: No Do you have trouble with day-to-day activities such as bathing, preparing meals, shopping, managing finances, etc.?: No Are you currently unemployed and looking for a job?: No Are you interested in more education?: No Please select the resources that you would like help with: None Currently or been in a relationship where the following occur: No concerns reported THRIVE Score: 0 AUDIT C Alcohol Use Questionnaire (AUDIT-C) 1. How often do you have a drink containing alcohol?: 2-4 times a month 2. How many drinks containing alcohol do you have on a typical day when you are drinking?: 1 or 2 3. How often do you have six or more drinks on one occasion?: Never Total Score: 2 ADÁN-7 AMB Questionnaire ADÁN-7 Date ADÁN - 7 assessed: 10/18/24 Feeling nervous, anxious, or on edge: 1 = Several days Not being able to stop or control worryin = Not at all Worrying too much about different things: 0 = Not at all Trouble relaxin = Not at all Being so restless that it is hard to sit still: 0 = Not at all Becoming easily annoyed or irritable: 0 = Not at all Feeling afraid as if something awful might happen: 0 = Not at all Total ADÁN-7 score (0-4 normal; 5-9 mild; 10-14 moderate; 15-21 severe): 1 Source: Developed by Drs. Channing Estrada, Annita Harding, Nic Rogers and colleagues, with an educational kelli from [employer]. ADÁN-7 Assessment Billing ADÁN-7 Assessment Tool: ADÁN-7 Assessment 64801 Review of Systems Const All systems reviewed & are unremarkable except as noted in HPI and below Card Denies chest pain at rest, Denies chest pain with activity, Denies edema, Denies irregular heart rhythm, Denies claudication, Denies dyspnea, Denies dyspnea on exertion, Denies orthopnea, Denies paroxysmal nocturnal dyspnea and Denies slow heart rate Resp Denies cough, Denies dyspnea and Denies dyspnea on exertion Neuro Denies behavioral changes and Denies lack of coordination Psych Denies behavioral changes Physical exam (Primary Care) Vital Signs: Last Vital Signs BP 118/82 10/18/24 14:43 BMI result Body Mass Index 31.3 Tobacco/Smoking Status: Tobacco use Status Tobacco use date assessed 10/18/24 10/18/24 14:48 Patient Tobacco Use Status Former Tobacco user 10/18/24 14:43 Tobacco use type Cigarette 10/18/24 14:43 e-Cigarette/Vaping Use Never Used 10/18/24 14:43 PHQ-9: PHQ-9 Score PHQ-9: Total score 0 10/18/24 15:11 Depression Screening Interpretation: Negative Thrive Assessment: Date of Thrive Assessment Date Thrive assessed 10/18/24 10/18/24 14:43 Currently or been in a relationship where the following occur: No concerns reported HENMT Head: Yes normal to inspection, Yes normocephalic and Yes atraumatic Ears: external ears normal Eyes General: appearance normal, both eyes and all related structures Eyelids: Yes eyelids normal Conjunctivae: conjunctivae normal Neck Neck: Yes normal visual inspection and Yes supple Resp Effort & Inspection: normal respiratory effort Auscultation: clear to auscultation bilaterally Cardio Jugular venous distension: no JVD Rate: regular rate Rhythm: regular rhythm Heart sounds: S1 normal heart sound present and S2 normal heart sound present GI Inspection: Yes normal to inspection Palpation (GI): Soft to palpation and nontender Auscultation: normal bowel sounds Skin General skin exam: no rashes or lesions noted Neuro General: no focal motor deficits Extrem General: Yes full ROM Psych Appearance: grossly normal Coding Level of Care Code Est Pt Level 3 (51829) Est Pt Prev Care 40-64y(81542) Diagnoses Physical exam Z00.00 Screen for STD (sexually transmitted disease) Z11.3 Additional Codes ADÁN-7 Assessment Billing - ADÁN-7 Assessment Tool: ADÁN-7 Assessment 08914 ([id number]) PHQ-9 - 03834 - PHQ-9 Billing: Yes ([id number]) Time Spent (min) 35 Assessment & Plan Assessment & Plan (1) Physical exam: Code(s): Z00.00 - Encounter for general adult medical examination without abnormal findings Category: Medical (2) Screen for STD (sexually transmitted disease): Code(s): Z11.3 - Encounter for screening for infections with a predominantly sexual mode of transmission Category: Medical Plan For the patient's persistent cough with phlegm, [id number] Mucinex is recommended for symptomatic relief with no immediate need for prescription medications. To address concerns regarding recent sexual activity and a self-resolving red marking, STI testing, including syphilis, chlamydia, and gonorrhea, will be conducted through blood and urine analysis. Routine follow-ups for health maintenance include monitoring hematologic status with additional blood work, particularly given the history of low hemoglobin. Cholesterol will also be evaluated to better assess cardiovascular health. Patient was informed and verbally consented to the use of an ambient scribe for clinic note documentation during this visit. I discussed with the patient the persistence of his cough and recommended trying Mucinex [id number] as its effectiveness is comparable to prescription options for expectoration. Regarding sexual health concerns, I explained that testing for STIs including syphilis, chlamydia, and gonorrhea through blood and urine samples would provide valuable information about any current or past infections, supporting his recent sexual activity evaluations. We also reviewed his overall health maintenance, including the need for blood work to re-evaluate his previous low hemoglobin and to assess cholesterol levels. Orders: Orders IRON PROFILE Today D64.9 - Anemia, unspecified Comprehensive [place]. Panel Fast Today Z00.00 - Encounter for general adult medical examination without abnormal findings Lipid Panel Today E78.5 - Hyperlipidemia, unspecified CT NG by PCR Today Z11.3 - Encounter for screening for infections with a predominantly sexual mode of transmission Hepatitis A,B,C Profile Today Z11.3 - Encounter for screening for infections with a predominantly sexual mode of transmission Complete Blood Count Auto Diff Today D64.9 - Anemia, unspecified HIV Ab/Ag Today Z11.3 - Encounter for screening for infections with a predominantly sexual mode of transmission Syphilis Screen Today Z11.3 - Encounter for screening for infections with a predominantly sexual mode of transmission Herpes Simplex Virus Ab IgG Today Z11.3 - Encounter for screening for infections with a predominantly sexual mode of transmission Medications: Discontinued terbinafine HCl Discontinued Reason: Patient Completed Course 250 mg PO DAILY 90 days 90 tabs 0RF Patient Instructions: - Use Mucinex as needed for cough with phlegm. - Follow instructions provided for STI testing. - Discuss family history of colon cancer with your mother. - Monitor any new or worsening symptoms and inform me as needed.
[2024-10-18 14:43] VITALS: BP 118/82; BMI 31.3
== END 2024-10-18 15:08 | disposition home or self-care (01) ==
LOC: HO.HMCH 14:33
PROVIDERS: PCP Internal Medicine; Visit Provider Internal Medicine
DX: Z00.00 Encounter for general adult medical examination without abnormal findings (principal); R05.9 Cough, unspecified; Z11.3 Encounter for screening for infections with a predominantly sexual mode of transmission

== ENCOUNTER → 2024-10-18 14:32 | Outpatient (BNVA) | payer BC, SELFPAY | PROVIDERS: PCP Internal Medicine; Visit Provider Internal Medicine | DX: Z00.00 Encounter for general adult medical examination without abnormal findings (principal) | CPT/HCPCS: 96127 ==

== ENCOUNTER 2024-11-23 10:36 | Outpatient (REF) | payer BC, SELFPAY ==
[2024-11-23 10:50] LABS: MANUAL DIFF FLAG NO
[2024-11-23 12:03] LABS: Basophils Percent Auto 0.8 % (0-2); Eosinophils Absolute Auto 0.2 X10*3/uL (0.0-0.4); Eosinophils Percent Auto 3.4 % (0-4); Hematocrit 38.3 % (42.0-52.0); Hemoglobin 12.7 g/dl (14.0-18.0); Lymphocytes Percent Auto 42.1 % (20-40); Mean Corpuscular HGB Conc 33.2 g/dl (31.0-36.0); Mean Corpuscular Volume 84.5 fL (80.0-98.0); Monocytes Absolute Auto 0.5 X10*3/uL (0.1-1.2); Monocytes Percent Auto 10.9 % (2-11); Neutrophils Percent Auto 42.8 % (45-73); Platelet Count 249 X10*3/uL (160-400); Red Blood Count 4.53 X10*6/uL (4.60-5.80); Red Cell Distribution Width 13.8 % (11.0-16.0); White Blood Count 4.8 X10*3/uL (4.8-10.8)
[2024-11-23 12:42] LABS: Alanine Aminotransferase 45 U/L (0-40); Albumin Level 4.7 g/dL (3.5-5.0); Alkaline Phosphatase 63 U/L (39-117); Anion Gap 8 (12-20); Aspartate Amino Transferase 36 U/L (5-37); Bilirubin Total 0.7 mg/dL (0.0-1.0); Blood Urea Nitrogen 18 mg/dL (9-16); Calcium 9.3 mg/dL (8.4-10.2); Carbon Dioxide 28 mmol/L (22-29); Chloride 106 mmol/L (96-108); Cholesterol 189 mg/dL (<200); Estimated Glomerular Filt Rate > 60; Glucose Fasting 83 mg/dL (60-99); HDL Cholesterol 38 mg/dL (>40); Iron 135 mcg/dL (45-160); LDL Cholesterol Calculated 127 mg/dL (<100); Percent Iron Saturation 50 % (15-50); Sodium 138 mmol/L (135-145); Total Iron Binding Capacity 269 mcg/dL (228-428); Total Protein 7.5 g/dL (6.5-8.0); Triglycerides 120 mg/dL (<150); Unsaturated Iron Binding 134 ug/dL
[2024-11-23 12:55] LABS: Syphilis Screen Nonreactive (Nonreactive)
[2024-11-23 12:58] LABS: HBS Num1 90.72 mIU/mL (0-7.99); HBc Num1 0.06 S/CO (0.00-0.79); HBsAGNum1 0.34 S/CO (0.00-0.99); HIV AB/AG Nonreactive (Nonreactive); HIV Num 1 0.06 S/CO (0.00-0.99); Hepatitis A Antibody IgM 0.17 Index (0-0.79); Hepatitis B Core Antibody Nonreactive (Nonreactive); Hepatitis B Surface Antigen Negative (Negative); ~HepC Num1 0.11 S/CO (0.00-0.79); ~Hepatitis A Antibody IgM Nonreactive (Nonreactive); ~Hepatitis B Surface Antibody REACTIVE (Nonreactive); ~Hepatitis C Antibody Nonreactive (Nonreactive)
[2024-11-23 13:54] LABS: CT PCR NOT DETECTED (Not Detect.); NG PCR NOT DETECTED (Not Detect.)
[2024-11-24 19:29] LABS: Herpes Simplex Type 2 IgG <0.90 index
== END 2024-11-23 10:37 | disposition home or self-care (01) ==
LOC: HO.LAB 10:36
PROVIDERS: PCP Internal Medicine; Visit Provider Internal Medicine
DX: Z00.00 Encounter for general adult medical examination without abnormal findings (principal); D64.9 Anemia, unspecified; Z11.3 Encounter for screening for infections with a predominantly sexual mode of transmission; E78.5 Hyperlipidemia, unspecified
CPT/HCPCS: 80053; 80061; 83540; 85025; 86695; 86696; 86704; 86706; 86709; 86780; 86803; 87340; 87389; 87491; 87591